=== PATIENT | female | born 1945 ===

== ENCOUNTER 2021-09-24 05:22 | Observation (INO) ==
[~2021-09-24 05:22] MED LIST: DiMENhydriNATE IV 50 mg/ml 1 ml VIAL IV PUSH PRN; Naloxone 0.4 mg VIAL 0.4 mg/ml 1 ml VIAL IV PRN
[2021-09-24] MEDS ORDERED: Lactated Ringers 1000 ml BAG 1,000 ML IV SCH (06:00)
[2021-09-24] MEDS ORDERED: Buffered Lidocaine 1% SYRIN 1 ml INTRADERM ONE (06:00)
[2021-09-24] MEDS ORDERED: ceFAZolin 2 GM in NS PREMIX 2 GM/100 ML BAG IVPB ONE (06:03)
[2021-09-24] MEDS ORDERED: Tranexamic Acid 1 GM/100ML BAG 0 MG/0 ML BAG IV ONE (06:03)
[2021-09-24] MEDS ORDERED: ceFAZolin 1 GM in Dextrose 0 GM/0 ML BAG ONE (06:14)
[2021-09-24] MEDS ORDERED: Propofol 0 MG/0 ML BTL ONE (07:14)
[2021-09-24] MEDS ORDERED: Phenylephrine IV 10 MG/ML 1 ml VIAL ONE (07:14)
[2021-09-24] MEDS ORDERED: Lidocaine 2% PF 5 ML VIAL ONE (07:14)
[2021-09-24] MEDS ORDERED: fentaNYL 100 mcg/2 ml 50 MCG/ML VIAL ONE ×3 (07:21→10:52)
[2021-09-24] MEDS ORDERED: Midazolam 2 mg/2 ml VIAL 1 mg/ml 2 ml VIAL (2 mg) ONE (07:22)
[2021-09-24] MEDS ORDERED: Propofol 10 MG/ML 20 ML BTL ONE (07:33)
[2021-09-24] MEDS ORDERED: Rocuronium 50 mg VIAL 10 mg/ml 5 ml VIAL (50 mg) ONE (07:38)
[2021-09-24] MEDS ORDERED: HYDROmorphone 0.5 MG/0.5 ML SYRINGE ONE (08:07)
[2021-09-24] MEDS ORDERED: Ondansetron 4 mg VIAL 2 MG/ML 2 ml VIAL ONE (08:23)
[2021-09-24] MEDS ORDERED: Dexamethasone IV 4 MG/ML VIAL 1 ml VIAL ONE (08:23)
[2021-09-24] MEDS ORDERED: Acetaminophen IV 1 GM/100ML 100 ML IV ONE (08:54)
[2021-09-24] MEDS ORDERED: Lactulose 30 ml UDC PO PRN (09:21)
[2021-09-24] MEDS ORDERED: Ondansetron ODT 4 mg TAB 4 MG TAB PO PRN (09:21)
[2021-09-24] MEDS ORDERED: Morphine 2 MG/ML SYRINGE IV PRN (09:21)
[2021-09-24] MEDS ORDERED: Magnesium Hydroxide LIQ 30 ML UDC PO PRN (09:21)
[2021-09-24] MEDS ORDERED: diPHENhydraMINE IV 50 MG/ML 1 ml VIAL (BENADRYL) IV PRN (09:21)
[2021-09-24] MEDS ORDERED: Ondansetron 4 mg VIAL 2 MG/ML 2 ml VIAL IV PRN (09:21)
[2021-09-24] MEDS ORDERED: diPHENhydraMINE 25 mg TAB PO PRN ×2 (09:21→09:27)
[2021-09-24] MEDS ORDERED: ROPIVACAINE 5 MG/ML 30 ML BTL (0.5%) ONE (10:22)
[2021-09-24] MEDS: fentaNYL 100 mcg/2 ml 50 MCG/ML VIAL IV PRN ×4 (10:54→11:13)
[2021-09-24] MEDS ORDERED: DiMENhydriNATE IV 50 mg/ml 1 ml VIAL ONE (11:34)
[2021-09-24] MEDS ORDERED: Haloperidol 5 mg/ml SDV IV/IM 5 MG/ML AMP IV SLOW PU ONE (12:13)
[2021-09-24] MEDS ORDERED: Haloperidol 5 mg/ml SDV IV/IM 5 MG/ML AMP ONE (12:16)
[2021-09-24] MEDS: Lactated Ringers 1000 ml BAG 1,000 ML IV SCH (14:00)
[2021-09-24] MEDS: ceFAZolin VIAL 1 GM in NS 0.9% 50 ML 50 ML IVPB SCH ×2 (15:55→23:27)
[2021-09-24] MEDS ORDERED: CMCS:Pravastatin 20 mg TAB (NF) PO SCH (21:00)
[2021-09-24] MEDS: Magnesium Hydroxide LIQ 30 ML UDC PO SCH (21:17)
[2021-09-25] MEDS: Lactated Ringers 1000 ml BAG 1,000 ML IV SCH (01:56)
[2021-09-25 06:44] LABS: Hematocrit 34 % (35-47); Hemoglobin 11.5 g/dL (12.0-16.0); Mean Platelet Volume 9.5 fL (7.4-10.4); Platelet Count 343 10^3/uL (150-450)
[2021-09-25 06:57] LABS: Calcium 8.7 mg/dL (8.6-10.3); Potassium 4.5 mmol/L (3.5-5.0); eGFR CKD-EPI 88.6 (>60)
[2021-09-25] MEDS: ceFAZolin VIAL 1 GM in NS 0.9% 50 ML 50 ML IVPB SCH (08:03)
[2021-09-25] MEDS: Magnesium Hydroxide LIQ 30 ML UDC PO SCH (08:13)
[2021-09-25] MEDS ORDERED: Vitamin THERAPEUTIC TAB PO SCH (09:00)
[2021-09-25 12:11] VITALS: BP 117/68
== END 2021-09-25 15:38 | disposition home or self-care (01) ==
LOC: SSU 05:22 → OR 05:22
PROVIDERS: ADMIT Orthopaedic Surgery Adult Reconstructive Orthopaedic Surgery; ATTEND Orthopaedic Surgery Adult Reconstructive Orthopaedic Surgery